=== PATIENT | male | born 1960 | race Caucasian/White ===

== ENCOUNTER 2020-04-01 22:29 | Outpatient (REF) | payer MEDICAID, SELFPAY ==
[2020-04-01 20:08] LABS: ALT 25 U/L (16-63); AST 18 U/L (15-37); Alkaline Phosphatase 52 U/L (46-116); Anion Gap 7.8 mmol/L (3-11); BUN 14 mg/dL (7-18); Bilirubin, Total 0.5 mg/dL (0.2-1.0); CO2 27.2 mmol/L (21.0-32.0); CREATININE 0.64 mg/dL (0.70-1.30); Calculated LDL 77 mg/dL (<100); Chloride 100 mmol/L (98-107); Cholesterol 212 mg/dL (<200); Glucose 108 mg/dL (74-106); HDL Cholesterol 127 mg/dL (40-60); Potassium 4.9 mmol/L (3.5-5.1); Sodium 135 mmol/L (136-145); Total Protein 7.4 g/dL (6.4-8.2); Triglyceride 42 mg/dL (<150)
[2020-04-01 20:53] LABS: Hemoglobin A1C 5.3 % (<5.7)
== END 2020-04-01 22:49 ==
LOC: NCHCN 22:29
PROVIDERS: PCP Physician Assistant Medical; Visit Provider Physician Assistant Medical
DX: R73.01 Impaired fasting glucose (principal); Z00.8 Encounter for other general examination
CPT/HCPCS: 80053; 80061; 83036

== ENCOUNTER 2021-01-10 02:59 | Outpatient (CLI) | payer MEDICAID, SELFPAY ==
--- NOTE | 2021-01-10 08:10 | DI.RAD_ITS ---
Exam(s) XR KNEE LT 3V AP,LAT,QUIQUE EXAM: XR KNEE LT 3V AP,LAT,QUIQUE CLINICAL HISTORY: LT KNEE PAIN,M25.562. TECHNIQUE: 2D digital imaging was performed of the left knee. Three images were obtained. AP, late ral and tunnel views were obtained. COMPARISON: CR CHEST 2 VIEWS PA,LAT from 06/23/2014 FINDINGS: BONES: No acute fracture is present. No bony destructive lesion is seen. JOINTS: The knee is normally aligned. Small joint effusion. There is mild narrowing of the medial fe moral tibial joint space. SOFT TISSUE: Normal. IMPRESSION: Small joint effusion. Mild joint space narrowing. DATA REPOSITORY: RADIATION DOSE DELIVERED:
== END 2021-01-10 03:19 ==
PROVIDERS: PCP Physician Assistant Medical; Visit Provider Physician Assistant Medical
DX: M25.562 Pain in left knee (principal); M25.462 Effusion, left knee
CPT/HCPCS: 73562

== ENCOUNTER 2021-10-17 16:31 | Outpatient (REF) | payer MEDICAID, SELFPAY ==
[2021-10-17 19:08] LABS: ALT 25 U/L (16-63); AST 28 U/L (15-37); Albumin 3.9 g/dL (3.4-5.0); Alkaline Phosphatase 66 U/L (46-116); Anion Gap 5.6 mmol/L (3-11); BUN 12 mg/dL (7-18); Bilirubin, Total 0.3 mg/dL (0.2-1.0); CO2 33.4 mmol/L (21.0-32.0); CREATININE 0.6 mg/dL (0.70-1.30); Calcium 8.9 mg/dL (8.5-10.1); Calculated LDL 69 mg/dL (<100); Chloride 102 mmol/L (98-107); Cholesterol 178 mg/dL (<200); Glucose 104 mg/dL (74-106); HDL Cholesterol 100 mg/dL (40-60); Potassium 4.5 mmol/L (3.5-5.1); Sodium 141 mmol/L (136-145); Total Protein 7.5 g/dL (6.4-8.2); Triglyceride 47 mg/dL (<150)
== END 2021-10-17 16:32 | disposition home or self-care (01) ==
LOC: NCHCN 16:31
PROVIDERS: PCP Physician Assistant Medical; Visit Provider Physician Assistant Medical
DX: R03.0 Elevated blood-pressure reading, without diagnosis of hypertension (principal); F17.200 Nicotine dependence, unspecified, uncomplicated; R79.89 Other specified abnormal findings of blood chemistry
CPT/HCPCS: 80053; 80061

== ENCOUNTER 2021-11-17 14:53 | Outpatient (REF) | payer MEDICAID, SELFPAY ==
--- NOTE | 2021-11-17 13:46 | SKI_PTH ---
PATIENT: Burak Meléndez LOC: [facility] U#:[id number] AGE/SX: 61/M ROOM: RE11/17/[address]: ANA M Cole : 1960 BED: DIS: 11/17/2021 SPEC #: [id number] RECD: 11/17/21 18:11 STATUS: GALEN REBárbara #: [id number] CARMENCITA: 11/17/21 13:[address]: Rissa Jenkins DEPT: Surgical Specimen RECD BY: Jazmine Mcintyre ENTERED: 11/17/21 18:12 SP TYPE: PROMISE MCCURDY DR: Freddie Hanks Tissues: 1 - SKIN BIOPSY(SHAVE/PUNCH) Procedures: GROSS AND MICRO LEVEL 4 IMMUNOPEROXIDASE STAIN Comments: [id number]
== END 2021-11-17 14:54 | disposition home or self-care (01) ==
LOC: LBN 14:53
PROVIDERS: PCP Physician Assistant Medical; Visit Provider Physical Therapy Assistant
DX: C82.84 Other types of follicular lymphoma, lymph nodes of axilla and upper limb (principal)
CPT/HCPCS: 88305; 88361

== ENCOUNTER 2021-11-27 02:52 | Outpatient (CLI) | payer MEDICAID, SELFPAY ==
[2021-11-27 09:06] LABS: Abs Immature Grans 0.02 10^3/uL (0.0-0.06); Absolute Basophil Count 0.04 10^3/uL (0.0-0.2); Absolute Lymphocyte Count 1.88 10^3/uL (1.2-3.4); Absolute Monocyte Count 0.61 10^3/uL (0.1-0.8); Absolute Neutrophil Count 4.89 10^3/uL (1.2-6.7); Basophils % 0.5; Eosinophils % 2.6; HCT 43.6 % (40.0-50.0); HGB 14.3 g/dL (13.5-17.5); Immature Grans % 0.3; Lymphocytes % 24.6; MCH 30.8 pg (27.0-33.0); MCHC 32.8 % (32.0-36.0); MCV 94 fL (80-95); MPV 10.3 fL (8.0-11.0); Platelet Count 241 10^3/uL (130-400); RBC 4.64 10^6/uL (4.36-5.78); RDW 12.6 % (11.8-14.1); RDW-SD 43.7 fL; WBC 7.64 10^3/uL (4.4-10.8)
[2021-11-27 09:24] LABS: ALT 27 U/L (16-63); AST 22 U/L (15-37); Albumin 3.6 g/dL (3.4-5.0); Alkaline Phosphatase 55 U/L (46-116); Anion Gap 5.3 mmol/L (3-11); BUN 17 mg/dL (7-18); Bilirubin, Direct 0.1 mg/dL (0.0-0.2); Bilirubin, Total 0.6 mg/dL (0.2-1.0); CO2 27.7 mmol/L (21.0-32.0); CREATININE 0.6 mg/dL (0.70-1.30); Calcium 8.5 mg/dL (8.5-10.1); Chloride 103 mmol/L (98-107); Glucose 111 mg/dL (74-106); Potassium 4.1 mmol/L (3.5-5.1); Sodium 136 mmol/L (136-145); Total Protein 7.3 g/dL (6.4-8.2)
[2021-11-28 09:39] LABS: HBs Antibody, Quant <3.1 mIU/mL (See Note); Hep B Surface Ab Negative (See Note); Hepatitis B Core Antibody Negative (Negative); Hepatitis B Surface Antigen Negative (Negative)
[2021-11-28 09:47] LABS: Hepatitis C Ab w Rflx HCV PCR Negative (Negative)
[2021-12-01 14:33] LABS: HIV 1 RNA Qualitative Undetected copies/mL (Undetected)
== END 2021-11-27 02:53 | disposition home or self-care (01) ==
LOC: LBO 02:52
PROVIDERS: PCP Physician Assistant Medical; Visit Provider Physical Therapy Assistant
DX: C82.34 Follicular lymphoma grade IIIa, lymph nodes of axilla and upper limb (principal); Z11.4 Encounter for screening for human immunodeficiency virus [HIV]; Z11.59 Encounter for screening for other viral diseases
CPT/HCPCS: 36415; 80048; 80076; 86704; 86706; 86803; 87340; 87536; 83615; 85025

== ENCOUNTER 2022-05-05 03:21 | Outpatient (CLI) | payer MEDICAID, SELFPAY ==
[2022-05-05 16:08] LABS: Abs Immature Grans 0.02 10^3/uL (0.0-0.06); Absolute Basophil Count 0.03 10^3/uL (0.0-0.2); Absolute Eosinophil Count 0.15 10^3/uL (0.0-0.7); Absolute Lymphocyte Count 2.37 10^3/uL (1.2-3.4); Absolute Monocyte Count 0.48 10^3/uL (0.1-0.8); Absolute Neutrophil Count 4.65 10^3/uL (1.2-6.7); Basophils % 0.4; Eosinophils % 1.9; HCT 47.8 % (40.0-50.0); HGB 15.1 g/dL (13.5-17.5); Immature Grans % 0.3; Lymphocytes % 30.8; MCH 28.8 pg (27.0-33.0); MCHC 31.6 % (32.0-36.0); MCV 91 fL (80-95); MPV 9.8 fL (8.0-11.0); Monocytes % 6.2; Neutrophils % 60.4; Platelet Count 260 10^3/uL (130-400); RBC 5.25 10^6/uL (4.36-5.78); RDW 12.2 % (11.8-14.1); RDW-SD 40.7 fL
[2022-05-05 16:32] LABS: ALT 36 U/L (16-63); AST 26 U/L (15-37); Albumin 4.2 g/dL (3.4-5.0); Alkaline Phosphatase 70 U/L (46-116); Anion Gap 3.2 mmol/L (3-11); BUN 11 mg/dL (7-18); Bilirubin, Total 0.5 mg/dL (0.2-1.0); CO2 34.8 mmol/L (21.0-32.0); CREATININE 0.7 mg/dL (0.70-1.30); Calcium 9.3 mg/dL (8.5-10.1); Chloride 102 mmol/L (98-107); Estimated GFR 106.14 (mL/min/1.73m2); Glucose 112 mg/dL (74-106); LDH 170 U/L (85-227); Potassium 4.6 mmol/L (3.5-5.1); Sodium 140 mmol/L (136-145); Total Protein 8.1 g/dL (6.4-8.2)
== END 2022-05-05 03:22 | disposition home or self-care (01) ==
LOC: LBO 03:21
PROVIDERS: Internal Medicine Hematology & Oncology; PCP Physician Assistant Medical; Visit Provider Physical Therapy Assistant
DX: C82.38 Follicular lymphoma grade IIIa, lymph nodes of multiple sites (principal)
CPT/HCPCS: 36415; 80053; 83615; 85025

== ENCOUNTER 2022-05-13 12:57 | Outpatient (REF) | payer MEDICAID, SELFPAY ==
--- NOTE | 2022-05-13 12:35 | SKI_PTH ---
PATIENT: Burak Meléndez LOC: [facility] U#:[id number] AGE/SX: 61/M ROOM: RE05/13/[address]: Dillan Sheets MD : 1960 BED: DIS: 05/13/2022 SPEC #: [id number] RECD: 05/13/22 13:05 STATUS: GALEN RE #: [id number] CARMENCITA: 05/13/22 12:[address]: Dillan Sheets DEPT: Surgical Specimen RECD BY: Jazmine Mcintyre ENTERED: 05/13/22 13:05 SP TYPE: PROMISE MCCURDY DR: Freddie Hanks Tissues: 1 - SKIN BIOPSY(SHAVE/PUNCH) Procedures: GROSS AND MICRO LEVEL 4 IMMUNOPEROXIDASE STAIN Comments: [id number]
== END 2022-05-13 12:58 | disposition home or self-care (01) ==
LOC: LBN 12:57
PROVIDERS: PCP Physician Assistant Medical; Visit Provider Surgery
DX: C82.14 Follicular lymphoma grade II, lymph nodes of axilla and upper limb (principal)
CPT/HCPCS: 88305; 88361

== ENCOUNTER 2022-06-30 16:37 | Outpatient (CLI) | payer MEDICAID, SELFPAY ==
[2022-06-30 11:46] LABS: Abs Immature Grans 0.01 10^3/uL (0.0-0.06); Absolute Basophil Count 0.04 10^3/uL (0.0-0.2); Absolute Lymphocyte Count 1.64 10^3/uL (1.2-3.4); Absolute Neutrophil Count 3.73 10^3/uL (1.2-6.7); Basophils % 0.7; Eosinophils % 1.7; HCT 43.1 % (40.0-50.0); HGB 14.1 g/dL (13.5-17.5); Immature Grans % 0.2; Lymphocytes % 27.7; MCH 29.8 pg (27.0-33.0); MCHC 32.7 % (32.0-36.0); MCV 91 fL (80-95); MPV 9.5 fL (8.0-11.0); Monocytes % 6.8; Neutrophils % 62.9; Platelet Count 240 10^3/uL (130-400); RBC 4.73 10^6/uL (4.36-5.78); RDW 12.7 % (11.8-14.1); RDW-SD 42.3 fL; WBC 5.92 10^3/uL (4.4-10.8)
[2022-06-30 12:06] LABS: ALT 26 U/L (16-63); AST 24 U/L (15-37); Albumin 3.9 g/dL (3.4-5.0); Alkaline Phosphatase 67 U/L (46-116); BUN 13 mg/dL (7-18); Bilirubin, Total 0.6 mg/dL (0.2-1.0); CREATININE 0.7 mg/dL (0.70-1.30); Calcium 8.8 mg/dL (8.5-10.1); Chloride 103 mmol/L (98-107); Estimated GFR 106.14 (mL/min/1.73m2); Glucose 104 mg/dL (74-106); LDH 205 U/L (85-227); Potassium 4.3 mmol/L (3.5-5.1); Sodium 141 mmol/L (136-145); Total Protein 7.5 g/dL (6.4-8.2)
== END 2022-06-30 16:38 | disposition home or self-care (01) ==
LOC: LBO 16:38
PROVIDERS: PCP Physician Assistant Medical; Visit Provider Internal Medicine Hematology & Oncology
DX: C82.38 Follicular lymphoma grade IIIa, lymph nodes of multiple sites (principal)
CPT/HCPCS: 36415; 80053; 83615; 85025

== ENCOUNTER 2022-07-17 07:32 | Day surgery (SDC) | payer MEDICAID, SELFPAY ==
--- NOTE | 2022-07-16 19:50 | PDOC.DSDIS_ITS ---
Date of service: 07/17/22 Time of Service: 08:52 Discharge Plan Disposition Patient Disposition: Home Condition: Good Discharge Details Reason For Visit: Colonoscopy Attending Provider: Janine Moss Primary Care Provider: Freddie Hanks Home Meds and New Rx's Prescriptions: Continued ascorbic acid (vitamin C) 500 mg capsule 500 mg PO DAILY Fish Oil 100-160-1,000 mg capsule 1 cap PO DAILY Culturelle 10 billion cell capsule 1 cap PO DAILY multivitamin [Daily Multi-Vitamin] Tablet 1 tab PO DAILY Discontinued bisacodyl [Dulcolax (bisacodyl)] 5 mg tablet,delayed release (DR/EC) 5 mg PO ONCE Qty: 4 0RF Rx Instructions: Take according to provider's instructions for colonoscopy prep. polyethylene glycol 3350 17 gram/dose powder 17 g PO ONCE Qty: 238 0RF Rx Instructions: To be taken as directed by prescriber's office for colonoscopy prep. No Action naproxen 500 mg Tablet 500 mg PO BID Patient Comments: pt unsure of dosage Discharge Instructions Additional Instructions: DSU Colonoscopy Post- Op Instructions Instructions for Everyone who is given Anes thesia: For your safety, please do the following for the next twenty-four (24) hours: *Do Not operate a motor vehicle (car, truck, motorcycle, etc.) *Do Not drink alcoholic beverages or use any recreational drugs for the first 24 hours or while taking pain medications. The medications in your body may have a reaction that can be dangerous. *Do Not make any important decisions or sign any important papers. Findings: No polyps Right-sided diverticula Think sure you are moving your bowels on a regular basis and not straining to go to the bathroom. Consider starting a fiber supplement. Follow up: 07/23 1:30 in surgery clinic 1. No lifting over 20 pounds or strenuous activity for the first 24 hours after your procedure. After 24 hours there are no restrictions on your activity but you may feel fatigued for a few days. 2. After you arrive home you may have a light meal and return to your normal diet as you can tolerate it without feeling sick to your stomach. 3. You may have a bloated, gaseous feeling in your belly (abdomen) after a colonoscopy. Passing gas and belching will help. Walking or lying down on your left side with your knees flexed may relieve the discomfort. Call the office at [phone] (Office) or [phone] (Hospital) right away if you notice any of the following: a.Vomiting of blood or ?coffee ground stools?. b.Rectal bleeding 1Tbsp, blood clots or continuous bleeding. c.Severe belly (abdominal) pain. d.A hard distended belly (abdomen) and an inability to pass gas. 4. Please don?t expect to have a normal BM (bowel movement) for 2-3 days after your procedure. 5. If there are questions regarding the findings of your procedure, please contact your doctor 6. If you are unable to contact your doctor with a problem, contact the hospital at [phone]. 7. Continue all your regular medications unless directed otherwise. I understand the above instructions and have no questions. Signature of Patient or Adult Escort Name of Responsible Adult Escort Signature of Nurse Date/Time Activity:: See above Diet:: See above DS: Diagnosis Discharge Diagnosis (1) Diverticulosis: Status: Acute (2) Tubular adenoma of colon:
[2022-07-17 07:59] VITALS: BP 136/84; PULSE 79; RESP 18; TEMP 37; O2SAT 98
[2022-07-17] MEDS: Lactated Ringers 1,000 ML 80 ML IV (08:00)
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
--- NOTE | 2022-07-17 08:19 | W.PM.OP ---
Date of service: 07/17/22 Time of Service: 08:19 Operative Note Operative Note DATE OF PROCEDURE: 07/17/22 PRE-OP DIAGNOSIS: tubular adenoma POST-OP DIAGNOSIS: other (cecal/right sided diverticula) SURGEON: Janine Moss ANESTHESIA TYPE: General:No Airway Refer to Anesthesia Record ESTIMATED BLOOD LOSS: 0 PATHOLOGY: none sent COMPLICATIONS: None Patient was transported to: same day Patient's condition: stable Procedure Description: After informed consent was obtained the patient was taken to the procedure room and placed in a left decubitous position. Monitors were applied and a time out was done. The patients name, date of , procedure, allergies to medications and metal in their body was reviewed. The patient was then sedated. Once sedated and comfortable a rectal exam was done. External exam was normal. Internal exam revealed a normal sphincter tone and no palpable masses. Without The scope was then introduced and retrofelexed. Patient does have an anal fissure at the 6 o'clock position. This is about 95% healed. There is a significant amount of scar tissue in this area showing that it is recurrent in nature. the prep was a BBPS 3 in all segments for total of 9. no internal hemorrhoids were identified. The scope was then advanced to the cecum w/out difficulty. The TI and appendiceal orifice were identified. the scope was then slowly retracted over 8 minutes back into the rectum. There were no polyps or AVMs visualized today. Mucosa is pink and healthy. There were diverticula noted in the cecum and a few small mouth scattered diverticula in the right colon. There are no diverticula left colon. There is no signs of active bleeding or infection.. The scope was removed and the patient was woken up and taken back to Same day surgery in stable condition. The patient tolerated the procedure well and there were no immediate complications. Follow up: The patient should follow up in 5 years unless they develop changes in bowel habits or other new gastrointestinal complaints.
[2022-07-17 08:51] VITALS: BP 104/78; PULSE 82; RESP 18; TEMP 36.3; O2SAT 98
[2022-07-17 08:55] VITALS: BMI 28.8
[2022-07-17 09:13] VITALS: BP 143/96; PULSE 75; RESP 18; TEMP 36.3; O2SAT 97
--- NOTE | 2022-07-17 09:50 | W.ANESPOSTOP ---
Postoperative Evaluation Date, Time and Location Date Performed: 07/17/22 Time Performed: 09:50 Patient Location: Day Surgery Unit Vital Signs Most Recent Imported Vital Signs: Most Recent Vital Signs Temp Pulse Resp BP Pulse Ox 36.3 C L 82 18 104/78 98 07/17/22 08:51 07/17/22 08:51 07/17/22 08:51 07/17/22 08:51 07/17/22 08:51 Pain Score Most Recent Pain Score: Most Recent Pain Score Pain Level 0 07/17/22 08:51 Assessment Mental Status: Awake (Alert & Oriented to Patient Baseline) Airway and Respiratory Function: Patent airway with normal (patient baseline) respiratory exam Cardiovascular Function: Hemodynamically Stable Hydration Status: Adequately Hydrated Nausea & Vomiting: No Nausea or Vomiting Pain: Pt. Denies Any Pain Peripheral Nerve Block: Patient did not receive a nerve block Postoperative Comments:: Seen earlier today. Reinforced to patient and to take it easy today. Specifically recommended someone else do farm chores for the patient.
== END 2022-07-17 09:47 | disposition home or self-care (01) ==
PROVIDERS: PCP Physician Assistant Medical; Visit Provider Surgery
PROC: 0DJD8ZZ Inspection of Lower Intestinal Tract, Via Natural or Artificial Opening Endoscopic (ICD-10-PCS; CPT 45378; principal; 2022-07-17 08:45)
DX: Z12.11 Encounter for screening for malignant neoplasm of colon (principal); K57.30 Diverticulosis of large intestine without perforation or abscess without bleeding; Z86.010 Personal history of colon polyps; C82.30 Follicular lymphoma grade IIIa, unspecified site
CPT/HCPCS: 45378

== ENCOUNTER 2022-08-03 15:37 | Outpatient (REF) | payer MEDICAID, SELFPAY ==
--- NOTE | 2022-08-03 15:15 | SKI_PTH ---
PATIENT: Burak Meléndez LOC: [facility] U#:[id number] AGE/SX: 61/M ROOM: RE08/03/[address]: Janine Moss : 1960 BED: DIS: 08/03/2022 SPEC #: [id number] RECD: 08/04/22 12:30 STATUS: GALEN REQ #: [id number] CARMENCITA: 08/03/22 15:[address]: Janine Moss DEPT: Surgical Specimen RECD BY: Jazmine Mcintyre ENTERED: 08/04/22 12:30 SP TYPE: PROMISE MCCURDY DR: Freddie Hanks Tissues: 1 - SKIN BIOPSY(SHAVE/PUNCH) Procedures: SKIN LEVEL 4 Comments: [id number]
== END 2022-08-03 15:38 | disposition home or self-care (01) ==
LOC: LBN 15:37
PROVIDERS: PCP Physician Assistant Medical; Visit Provider Surgery
DX: L72.9 Follicular cyst of the skin and subcutaneous tissue, unspecified (principal)
CPT/HCPCS: 88305

== ENCOUNTER 2022-10-07 16:44 | Outpatient (CLI) | payer MEDICAID, SELFPAY ==
[2022-10-07 17:06] LABS: Abs Immature Grans 0.03 10^3/uL (0.0-0.06); Absolute Basophil Count 0.04 10^3/uL (0.0-0.2); Absolute Eosinophil Count 0.13 10^3/uL (0.0-0.7); Absolute Lymphocyte Count 1.91 10^3/uL (1.2-3.4); Absolute Monocyte Count 0.64 10^3/uL (0.1-0.8); Absolute Neutrophil Count 5.63 10^3/uL (1.2-6.7); Basophils % 0.5; Eosinophils % 1.6; HCT 43.7 % (40.0-50.0); Immature Grans % 0.4; Lymphocytes % 22.8; MCH 29.5 pg (27.0-33.0); MCV 92 fL (80-95); MPV 9.7 fL (8.0-11.0); Monocytes % 7.6; Neutrophils % 67.1; Platelet Count 261 10^3/uL (130-400); RBC 4.75 10^6/uL (4.36-5.78); RDW 11.9 % (11.8-14.1); RDW-SD 40.3 fL; WBC 8.38 10^3/uL (4.4-10.8)
[2022-10-07 17:43] LABS: ALT 22 U/L (16-63); AST 15 U/L (15-37); Alkaline Phosphatase 67 U/L (46-116); Anion Gap 3.5 mmol/L (3-11); BUN 19 mg/dL (7-18); Bilirubin, Total 0.8 mg/dL (0.2-1.0); CO2 33.5 mmol/L (21.0-32.0); CREATININE 0.7 mg/dL (0.70-1.30); Calcium 9.1 mg/dL (8.5-10.1); Chloride 104 mmol/L (98-107); Estimated GFR 105.49 (mL/min/1.73m2); Glucose 86 mg/dL (74-106); LDH 185 U/L (85-227); Potassium 4.8 mmol/L (3.5-5.1); Sodium 141 mmol/L (136-145); Total Protein 7.5 g/dL (6.4-8.2)
== END 2022-10-07 16:45 | disposition home or self-care (01) ==
LOC: LBO 16:45
PROVIDERS: PCP Physician Assistant Medical; Visit Provider Internal Medicine Hematology & Oncology
DX: C82.38 Follicular lymphoma grade IIIa, lymph nodes of multiple sites (principal)
CPT/HCPCS: 36415; 80053; 83615; 85025

== ENCOUNTER 2022-11-04 16:23 | Outpatient (REF) | payer MEDICAID, SELFPAY ==
[2022-11-04 20:13] LABS: Hemoglobin A1C 5.7 % (<5.7)
[2022-11-04 20:22] LABS: TSH (W/Ref FT4) 2.05 uIU/mL (0.36-3.74)
[2022-11-05 21:53] LABS: PSA, Screening 0.6 ng/mL (<=4.5)
[2022-11-12 18:04] LABS: Testosterone, Free 4.08 ng/dL (3.67-13.9); Testosterone, Total 241 ng/dL (240-950)
== END 2022-11-04 16:24 | disposition home or self-care (01) ==
LOC: NCHCN 16:23
PROVIDERS: PCP Physician Assistant Medical; Visit Provider Physician Assistant Medical
DX: F52.21 Male erectile disorder (principal)
CPT/HCPCS: 84153; 84402; 84403; 83036; 84443

== ENCOUNTER 2023-06-22 15:22 | Outpatient (CLI) | payer MEDICAID, SELFPAY ==
[2023-06-22 14:45] LABS: Abs Immature Grans 0.03 10^3/uL (0.0-0.06); Absolute Basophil Count 0.05 10^3/uL (0.0-0.2); Absolute Eosinophil Count 0.05 10^3/uL (0.0-0.7); Absolute Lymphocyte Count 1.36 10^3/uL (1.2-3.4); Absolute Monocyte Count 0.71 10^3/uL (0.1-0.8); Absolute Neutrophil Count 5.46 10^3/uL (1.2-6.7); Basophils % 0.7; Eosinophils % 0.7; HCT 47.9 % (40.0-50.0); HGB 15.8 g/dL (13.5-17.5); Immature Grans % 0.4; Lymphocytes % 17.8; MCH 31.8 pg (27.0-33.0); MCV 96 fL (80-95); MPV 9.7 fL (8.0-11.0); Monocytes % 9.3; Neutrophils % 71.1; Platelet Count 231 10^3/uL (130-400); RBC 4.97 10^6/uL (4.36-5.78); RDW 12.3 % (11.8-14.1); RDW-SD 43.7 fL; WBC 7.66 10^3/uL (4.4-10.8)
[2023-06-22 16:23] LABS: ALT 29 U/L (16-63); AST 24 U/L (15-37); Alkaline Phosphatase 60 U/L (46-116); Anion Gap 12.7 mmol/L (3-11); BUN 14 mg/dL (7-18); Bilirubin, Total 0.8 mg/dL (0.2-1.0); CO2 25.3 mmol/L (21.0-32.0); CREATININE 0.7 mg/dL (0.70-1.30); Calcium 8.9 mg/dL (8.5-10.1); Chloride 99 mmol/L (98-107); Estimated GFR 105.49 (mL/min/1.73m2); Glucose 114 mg/dL (74-106); LDH 171 U/L (85-227); Potassium 4.6 mmol/L (3.5-5.1); Sodium 137 mmol/L (136-145); Total Protein 8.1 g/dL (6.4-8.2)
[2023-06-23 09:42] LABS: IgA 479 mg/dL (85-499); IgG 1157 mg/dL (610-1616); IgM 132 mg/dL (35-242)
== END 2023-06-22 15:23 | disposition home or self-care (01) ==
LOC: LBO 15:22
PROVIDERS: PCP Physician Assistant Medical; Visit Provider Nurse Practitioner Adult Health
DX: C82.38 Follicular lymphoma grade IIIa, lymph nodes of multiple sites (principal)
CPT/HCPCS: 36415; 80053; 82784; 83615; 85025

== ENCOUNTER 2023-11-26 15:40 | Outpatient (CLI) | payer MEDICAID, SELFPAY ==
[2023-11-26 14:21] LABS: Abs Immature Grans 0.03 10^3/uL (0.0-0.06); Absolute Basophil Count 0.03 10^3/uL (0.0-0.2); Absolute Eosinophil Count 0.27 10^3/uL (0.0-0.7); Absolute Lymphocyte Count 1.55 10^3/uL (1.2-3.4); Absolute Monocyte Count 0.47 10^3/uL (0.1-0.8); Basophils % 0.7 %; Eosinophils % 5.9 %; HCT 40.7 % (40.0-50.0); HGB 13.6 g/dL (13.5-17.5); Immature Grans % 0.7 %; Lymphocytes % 34.1 %; MCH 32.8 pg (27.0-33.0); MCHC 33.4 % (32.0-36.0); MCV 98 fL (80-95); MPV 9.5 fL (8.0-11.0); Monocytes % 10.3 %; Neutrophils % 48.3 %; Platelet Count 206 10^3/uL (130-400); RBC 4.15 10^6/uL (4.36-5.78); RDW 11.9 % (11.8-14.1); RDW-SD 43.5 fL; WBC 4.55 10^3/uL (4.4-10.8)
[2023-11-26 14:46] LABS: ALT 24 U/L (16-63); AST 22 U/L (15-37); Albumin 3.8 g/dL (3.4-5.0); Alkaline Phosphatase 63 U/L (46-116); Anion Gap 7.9 mmol/L (3-11); BUN 12 mg/dL (7-18); Bilirubin, Total 0.52 mg/dL (0.2-1.0); CO2 30.1 mmol/L (21.0-32.0); CREATININE 0.7 mg/dL (0.70-1.30); Calcium 9.2 mg/dL (8.5-10.1); Chloride 102 mmol/L (98-107); Estimated GFR 104.83 (mL/min/1.73m2); Glucose 94 mg/dL (74-106); LDH 149 U/L (85-227); Potassium 3.8 mmol/L (3.5-5.1); Sodium 140 mmol/L (136-145); Total Protein 7.5 g/dL (6.4-8.2)
[2023-11-29 10:14] LABS: IgA 393 mg/dL (85-499); IgG 999 mg/dL (610-1616); IgM 112 mg/dL (35-242)
== END 2023-11-26 15:41 | disposition home or self-care (01) ==
LOC: LBO 15:42
PROVIDERS: PCP Physician Assistant Medical; Visit Provider Nurse Practitioner Adult Health
DX: C82.38 Follicular lymphoma grade IIIa, lymph nodes of multiple sites (principal)
CPT/HCPCS: 36415; 80053; 82784; 83615; 85025

== ENCOUNTER 2024-12-26 15:47 | Outpatient (REF) | payer OTHER, SELFPAY ==
[2024-12-26 17:04] LABS: Calculated LDL 118 mg/dL (<100); Cholesterol 246 mg/dL (<200); HDL Cholesterol 122 mg/dL (>or=40); Triglyceride 32 mg/dL (<150)
[2024-12-26 17:12] LABS: Hemoglobin A1C 5.3 % (<5.7)
== END 2024-12-26 15:48 | disposition home or self-care (01) ==
LOC: NCHCN 15:47
PROVIDERS: PCP Physician Assistant Medical; Visit Provider Physician Assistant Medical
DX: Z13.220 Encounter for screening for lipoid disorders (principal); R73.03 Prediabetes
CPT/HCPCS: 80061; 83036